=== PATIENT | female | born 1950 | race Caucasian/White ===

== ENCOUNTER 2016-10-28 13:38 | Emergency (ER) | payer OTHER ==
[2016-10-28 13:44] VITALS: TEMP 98; BMI 28.3
--- NOTE | 2016-10-28 15:07 | PDOC ---
History of Present Illness - General History Source: Patient Exam Limitations: No Limitations - History of Present Illness Initial Comments: 10/28/16 15:19 The patient is a 66-year-old woman, accompanied by friend, with a significant past medical history of HIV, hypertension, hyperhcolesterolemia, diabetes mellitus, asthma and chronic back pain who presents to the emergency department for further evaluation of chest pain for the past 3 days. She describes her chest pain as a tightening sensation along the mid-sternum, that has been non- radiating and constant since onset (lasting several seconds) with a 10/10 in severity. She also notes that her chest pain is associated with back pain and neck pain. Her pain is exacerbated with movements and alleviated with 800mg of ibuprofen. She recalls an event, approximately 2 weeks ago, where she was holding her [employer] and immediately felt back pain. She believes that her chest pain is secondary to this event. She denies fever, chills, cough, hemoptysis, diaphoresis, shortness of breath, headache. She denies jaw pain, lower extremity pain/swelling, calf tenderness/pain Allergies: None Known Past Surgical History: None reported Social History: No tobacco, ETOH and recreational drug use. <Sabra Luo - Last Filed: 10/28/16 15:41> <Noah Pineda - Last Filed: 10/28/16 17:16> - General Chief Complaint: Chest Pain Stated Complaint: CHEST PAIN Time Seen by Provider: 10/28/16 14:47 Past History <Sabra Luo - Last Filed: 10/28/16 15:41> - Past Medical History Asthma: Yes Diabetes: Yes HTN: Yes Hypercholesterolemia: Yes HIV: Yes - Immunization History Immunization Up to Date: Yes - Psycho/Social/Smoking Cessation Hx Anxiety: No Suicidal Ideation: No Smoking History: Never smoked Hx Alcohol Use: No Drug/Substance Use Hx: No Substance Use Type: None <Noah Pineda - Last Filed: 10/28/16 17:16> - Past Medical History Allergies/Adverse Reactions: Allergies Allergy/AdvReac Type Severity Reaction Status Date / Time No Known Allergies Allergy Verified 10/28/16 13:44 Home Medications: Ambulatory Orders Lisinopril/Hydrochlorothiazide [Lisinopril-Hctz 20-12.5 mg Tab] 1 each PO DAILY 10/28/16 Metformin HCl 850 mg PO DAILY 10/28/16 Review of Systems - Review of Systems Constitutional: No: Chills, Fever Respiratory: No: Cough, Shortness of Breath Cardiac (ROS): Yes: Chest Pain ABD/GI: Yes: Constipated. No: Diarrhea, Vomiting Musculoskeletal: Yes: Back Pain, Muscle Pain All Other Systems: Reviewed and Negative <Noah Pineda - Last Filed: 10/28/16 17:16> *Physical Exam - Vital Signs Last Vital Signs Temp Pulse Resp BP Pulse Ox 98.0 F 86 20 158/85 98 10/28/16 13:40 10/28/16 13:40 10/28/16 13:40 10/28/16 13:40 10/28/16 13:40 - Physical Exam Comments: 10/28/16 15:19 GENERAL: The patient is awake, alert, and fully oriented, in no acute distress. HEAD: Normal with no signs of trauma. EYES: Pupils equal, round and reactive to light, extraocular movements intact, sclera anicteric, conjunctiva clear with no pallor. ENT: Ears normal, nares patent, oropharynx clear without exudates. Moist mucous membranes. NECK: Normal range of motion, supple without lymphadenopathy, JVD, or masses. LUNGS: Breath sounds equal, clear to auscultation bilaterally. No wheeze/ crackles. HEART: Regular rate and rhythm, normal S1 and S2 without murmur or rub. CHEST: There is some reproducible mid sternal chest pain. BACK: There is some thoracic spine tenderness to palpation. ABDOMEN: Soft/nontender/nondistended. BS wnl. No guarding or rebound. No palpable masses. No hepatosplenomegaly. EXTREMITIES: Normal range of motion, no edema. No clubbing or cyanosis. No cords, erythema, or tenderness. NEUROLOGICAL: Cranial nerves II through XII grossly intact. Normal speech. PSYCH: Normal mood, normal affect. SKIN: Warm, Dry, normal turgor, no rashes or lesions noted. <Sabra Luo - Last Filed: 10/28/16 15:41> - Vital Signs Last Vital Signs Temp Pulse Resp BP Pulse Ox 98.0 F 86 20 158/85 98 10/28/16 13:40 10/28/16 13:40 10/28/16 13:40 10/28/16 13:40 10/28/16 13:40 <Noah Pineda - Last Filed: 10/28/16 17:16> Heart Score/ECG Review - History History: Slightly suspicious - Electrocardiogram EKG: Normal - Age Age: >/= 65 - Risk Factors Based on the list above the patient has:: 1-2 risk factors - Troponin Troponin: </= normal limit - Score Heart Score - Total: 3 #1 ECG reviewed & interpreted by me at: 13:48 General ECG Interpretation: Sinus Rhythm (single APC noted), Normal Rate (74), Normal Intervals (LVH), No acute ischemic changes <Noah Pineda - Last Filed: 10/28/16 17:16> ED Treatment Course - LABORATORY CBC & Chemistry Diagram: 10/28/16 16:20 10/28/16 16:20 <Noah Pineda - Last Filed: 10/28/16 17:16> Medical Decision Making - Medical Decision Making 10/28/16 15:54 A portion of this note was documented by scribe services under my direction. I have reviewed the details of the note, within reason, and agree with the documentation with the following case summary and management plan written by me. 66-year-old female presents with 4 days of mid back pain radiating to the chest , intermittent and recurring lasting a few minutes at a time, not positional or exertional, not associated with palpitations or shortness of breath. Patient feels her symptoms again while she was putting a heavy box on a shelf about 7- 10 days ago, she felt a twinge in her back that became much more severe a few days later. No direct falls or trauma. No sensory or motor complaints. She takes ibuprofen with temporary relief. Afebrile. Overall well-appearing Reproducible midthoracic and sternal tenderness without bruising or swelling Heart and lungs are clear 66-year-old female with back pain radiating to the chest, possible disc disease , neurovascularly and neurologically intact. Very atypical for ACS or dissection or primary pulmonary process. Check labs, EKG Chest x-ray and thoracic spine films Pain meds Reassess and dispo <Noah Pineda - Last Filed: 10/28/16 17:16> *DC/Admit/Observation/Transfer - Attestations Scribe Attestion: 10/28/16 15:41 Documentation prepared by Sabra Luo, acting as behavioral medical director for Noah Pineda MD. <Sabra Luo - Last Filed: 10/28/16 15:41> <Noah Pineda - Last Filed: 10/28/16 17:16> Diagnosis at time of Disposition: Thoracic back pain Qualifiers: Chronicity: acute Back pain laterality: midline Qualified Code(s): M54.6 - Pain in thoracic spine - Referrals Referrals: STAFF,NOT ON [Primary Care Provider] -
[2016-10-28] MEDS ORDERED: traMADol HCL 50 MG TABLET PO ONE (15:17)
[2016-10-28] MEDS ORDERED: traMADol HCL 50 MG TABLET ONE (16:22)
[2016-10-28 16:31] LABS: BASOPHIL 0.4 % (0-2.0); EOSINOPHIL 0.8 % (0-4.5); MCH 27.3 pg (25.7-33.7); MCHC 33.3 g/dl (32.0-36.0); MEAN PLT VOLUME 8.2 fl (7.5-11.1); NEUTROPHILS 65.9 % (42.8-82.8); PLATELET COUNT 293 K/MM3 (134-434); RDW 14.4 % (11.6-15.6); WHITE BLOOD COUNT 9.8 K/mm3 (4.0-10.0)
[2016-10-28 16:44] LABS: INR 1.09 (0.82-1.09)
[2016-10-28 17:42] LABS: ALK PHOS 117 U/L (45-117); ANION GAP -3 (8-16); BILIRUBIN,TOTAL 0.2 mg/dL (0.2-1.0); CO2 30 mmol/L (21-32); CREATININE 0.7 mg/dL (0.55-1.02); GLUCOSE,RANDOM 171 mg/dL (74-106); MAGNESIUM 1.9 mg/dL (1.8-2.4); SGOT/AST 12 U/L (15-37); SGPT/ALT 25 U/L (12-78); TOT PROT 7.7 g/dl (6.4-8.2); TROPONIN I < 0.02 ng/ml (0.00-0.05)
[2016-10-28] MEDS ORDERED: KETOROLAC TROMETHAMINE 30 MG/1 ML VIAL IVPUSH ONE (18:18)
[2016-10-28] MEDS ORDERED: KETOROLAC TROMETHAMINE 30 MG/1 ML VIAL ONE (18:27)
--- NOTE | 2016-10-28 18:59 | PDOC ---
*Physical Exam - Vital Signs Last Vital Signs Temp Pulse Resp BP Pulse Ox 98.0 F 87 20 158/85 98 10/28/16 13:40 10/28/16 16:34 10/28/16 13:40 10/28/16 13:40 10/28/16 16:34 ED Treatment Course - LABORATORY CBC & Chemistry Diagram: 10/28/16 16:20 10/28/16 16:20 - ADDITIONAL ORDERS Additional order review: Laboratory Results 10/28/16 10/28/16 16:20 16:20 INR 1.09 Sodium 131 L Potassium 4.1 Chloride 104 Carbon Dioxide 30 Anion Gap -3 L BUN 17 Creatinine 0.7 Creat Clearance w eGFR > 60 Random Glucose 171 H D Calcium 10.0 Magnesium 1.9 Total Bilirubin 0.2 AST 12 L ALT 25 Alkaline Phosphatase 117 D Creatine Kinase 95 Troponin I < 0.02 Total Protein 7.7 Albumin 4.0 10/28/16 16:20 RBC 4.80 MCV 82.0 MCHC 33.3 RDW 14.4 MPV 8.2 Neutrophils % 65.9 Lymphocytes % 27.2 Monocytes % 5.7 Eosinophils % 0.8 Basophils % 0.4 - Medications Given in the ED: ED Medications Discontinued Medications Generic Name Dose Route Start Last Admin Trade Name Freq PRN Reason Stop Dose Admin Ketorolac Tromethamine 30 mg 10/28/16 18:18 10/28/16 18:30 Toradol Injection - IVPUSH 10/28/16 18:19 30 mg ONCE ONE Administration Tramadol HCl 50 mg 10/28/16 15:17 10/28/16 16:26 Ultram - PO 10/28/16 15:18 50 mg ONCE ONE Administration Medical Decision Making - Medical Decision Making 10/28/16 18:54 Sign-out received from outgoing Emergency Physician Dr. Pineda Pt interviewed and examined Ancillary studies reviewed Case discussed in detail with oncoming Emergency Physician including history, physical exam and ancillary studies. The patient reports feeling better after tylenol and toradol. CBC, BMP 10/28/16 16:20 10/28/16 16:20 CMP Sodium 131 mmol/L (136-145) L 10/28/16 16:20 Potassium 4.1 mmol/L (3.5-5.1) 10/28/16 16:20 Chloride 104 mmol/L (98-107) 10/28/16 16:20 Carbon Dioxide 30 mmol/L (21-32) 10/28/16 16:20 Anion Gap -3 (8-16) L 10/28/16 16:20 BUN 17 mg/dL (7-18) 10/28/16 16:20 Creatinine 0.7 mg/dL (0.55-1.02) 10/28/16 16:20 Creat Clearance w eGFR > 60 (>60) 10/28/16 16:20 Random Glucose 171 mg/dL (74-106) H D 10/28/16 16:20 Calcium 10.0 mg/dL (8.5-10.1) 10/28/16 16:20 Magnesium 1.9 mg/dL (1.8-2.4) 10/28/16 16:20 Total Bilirubin 0.2 mg/dL (0.2-1.0) 10/28/16 16:20 AST 12 U/L (15-37) L 10/28/16 16:20 ALT 25 U/L (12-78) 10/28/16 16:20 Alkaline Phosphatase 117 U/L (45-117) D 10/28/16 16:20 Creatine Kinase 95 IU/L (26-192) 10/28/16 16:20 Troponin I < 0.02 ng/ml (0.00-0.05) 10/28/16 16:20 Total Protein 7.7 g/dl (6.4-8.2) 10/28/16 16:20 Albumin 4.0 g/dl (3.4-5.0) 10/28/16 16:20 Trop negative. Chest xray reviewed. No acute findings. No widened mediastinum. Thoracic spine shows spondylosis, which is likely the source of patient's back pain. Supportive care. Patient requesting a PMD here at [facility]. Return precautions given. I discussed the physical exam findings, ancillary test results and final diagnoses with the patient. I answered all of the patient's questions. The patient was satisfied with the care received and felt comfortable with the discharge plan and treatment plan. The patient will call their primary care physician within 24 hours to arrange follow-up and will return to the Emergency Department with any new, persistant or worsening symptoms. *DC/Admit/Observation/Transfer Diagnosis at time of Disposition: Thoracic back pain Qualifiers: Chronicity: acute Back pain laterality: midline Qualified Code(s): M54.6 - Pain in thoracic spine - Discharge Dispostion Disposition: HOME Condition at time of disposition: Improved Admit: No - Prescriptions Prescriptions: Blood Sugar Diagnostic [Test Strips] 1 each MC DAILY #30 strip Acetaminophen [Tylenol] 650 mg PO Q4H PRN #20 tablet PRN Reason: Pain/Fever - Referrals Referrals: STAFF,NOT ON [Primary Care Provider] - - Patient Instructions Printed Discharge Instructions: DI for Thoracic Back Pain Additional Instructions: Use 650 mg tylenol every 4 hours as needed for pain. Please take the results of your xrays and blood work and bring it to your doctor. Call to schedule an appointment. - Post Discharge Activity
[2016-10-28 19:40] VITALS: BP 148/76; PULSE 72
--- NOTE | 2016-10-29 16:57 | EKG ---
Test Reason : Blood Pressure : / mmHG Vent. Rate : 074 BPM Atrial Rate : 074 BPM P-R Int : 174 ms QRS Dur : 086 ms QT Int : 376 ms P-R-T Axes : 037 -14 -33 degrees QTc Int : 417 ms SINUS RHYTHM WITH OCCASIONAL PREMATURE VENTRICULAR COMPLEXES MINIMAL VOLTAGE CRITERIA FOR LVH, MAY BE NORMAL VARIANT CANNOT RULE OUT ANTERIOR INFARCT , AGE UNDETERMINED ABNORMAL ECG WHEN COMPARED WITH ECG OF 20-DEC-2015 19:08, PREMATURE VENTRICULAR COMPLEXES ARE NOW PRESENT Confirmed by KATHE LARKIN MD ([id number]) on 10/29/2016 4:56:52 PM Referred By: Confirmed By:KATHE LARKIN MD
--- NOTE | 2016-11-02 16:24 | EKG ---
Test Reason : Blood Pressure : / mmHG Vent. Rate : 073 BPM Atrial Rate : 073 BPM P-R Int : 186 ms QRS Dur : 086 ms QT Int : 372 ms P-R-T Axes : 047 -14 -09 degrees QTc Int : 409 ms NORMAL SINUS RHYTHM MINIMAL VOLTAGE CRITERIA FOR LVH, MAY BE NORMAL VARIANT NONSPECIFIC T WAVE ABNORMALITY ABNORMAL ECG WHEN COMPARED WITH ECG OF 28-OCT-2016 13:48, PREMATURE VENTRICULAR COMPLEXES ARE NO LONGER PRESENT Confirmed by THALIA PRESTON, KAROLINE ([id number]) on 11/02/2016 4:24:38 PM Referred By: Confirmed By:KAROLINE VÁSQUEZ MD
== END 2016-10-28 19:40 | disposition home or self-care (01) ==
LOC: JER 13:38
PROC: 3E0333Z Introduction of Anti-inflammatory into Peripheral Vein, Percutaneous Approach (ICD-10-PCS; principal; 2016-10-28)
DX: M54.6 Pain in thoracic spine (principal); Z21 Asymptomatic human immunodeficiency virus [HIV] infection status; I10 Essential (primary) hypertension; E78.00 Pure hypercholesterolemia, unspecified; E11.9 Type 2 diabetes mellitus without complications; J45.909 Unspecified asthma, uncomplicated; G89.29 Other chronic pain
CPT/HCPCS: 36415; 71020-TC; 72070-TC; 80053; 82550; 83735; 84484; 85025; 85610; 93005; 93010; 96374; 99284-25

== ENCOUNTER 2017-03-17 17:10 | Emergency (ER) | payer OTHER ==
[2017-03-17 17:23] VITALS: BMI 31.1
--- NOTE | 2017-03-17 18:03 | PDOC ---
History of Present Illness - General History Source: Patient Exam Limitations: No Limitations - History of Present Illness Initial Comments: 03/17/17 18:55 The patient is a 66 year old female, with a significant past medical history of Hypertension, hyperhcolesterolemia, diabetes mellitus, asthma and chronic back pain, who presents to the emergency department with abdominal pain, nausea, back pain, sore throat and fever since last night. She reports that her fever is subjective in favor. She describes her abdominal pain as ranging from mild to moderate, without radiation or modifying factors. She notes that her abdominal pain was onset earlier today when she fell. She denies any head trauma or loss of consciousness. She describes her back pain as localized in the mid to low back, ranging from mild to moderate, without radiation. She notes that the pain is exacerbated when the area is palpated. She notes that she took aspirin last night, with minimal relief of her symptoms. The patient denies chest pain, shortness of breath, headache and dizziness. Denies chills, vomit, diarrhea and constipation. Denies dysuria, frequency, urgency and hematuria. Allergies: None Known Past Surgical History: None reported Social History: No tobacco, ETOH and recreational drug use. <Domenic Issa - Last Filed: 03/17/17 19:52> <Emile Osorio - Last Filed: 03/17/17 20:06> - General Chief Complaint: Pain Stated Complaint: PAIN Time Seen by Provider: 03/17/17 17:54 Past History <Domenic Issa - Last Filed: 03/17/17 19:52> - Past Medical History Asthma: Yes Diabetes: Yes HTN: Yes Hypercholesterolemia: Yes HIV: No - Immunization History Immunization Up to Date: Yes - Psycho/Social/Smoking Cessation Hx Anxiety: No Suicidal Ideation: No Smoking History: Never smoked Hx Alcohol Use: No Drug/Substance Use Hx: No Substance Use Type: None <Emile Osorio - Last Filed: 03/17/17 20:06> - Past Medical History Allergies/Adverse Reactions: Allergies Allergy/AdvReac Type Severity Reaction Status Date / Time No Known Allergies Allergy Verified 03/17/17 17:23 Home Medications: Ambulatory Orders Acetaminophen [Tylenol] 650 mg PO Q4H PRN #20 tablet 10/28/16 Blood Sugar Diagnostic [Test Strips] 1 each MC DAILY #30 strip 10/28/16 Lisinopril/Hydrochlorothiazide [Lisinopril-Hctz 20-12.5 mg Tab] 1 each PO DAILY 10/28/16 Metformin HCl 850 mg PO DAILY 10/28/16 Amoxicillin - [Amoxicillin 500mg Capsule -] 500 mg PO BID #20 capsule 03/17/17 Review of Systems - Review of Systems Able to Perform ROS?: Yes Comments:: 03/17/17 18:55 CONSTITUTIONAL: (+) Fever. No chills, no fatigue EYES: No visual changes ENT: (+) Sore throat. No ear pain CARDIOVASCULAR: No chest pain, no palpitations RESPIRATORY: No cough, no SOB GI: (+) Abdominal pain, nausea, No vomiting, no constipation, no diarrhea GENITOURINARY: No dysuria, no frequency, no hematuria MUSKULOSKELETAL: (+) Back pain. No joint pain, no myalgias SKIN: No rash NEURO: No headache <Domenic Issa - Last Filed: 03/17/17 19:52> *Physical Exam - Vital Signs Last Vital Signs Temp Pulse Resp BP Pulse Ox 98.7 F 103 H 20 164/80 98 03/17/17 17:20 03/17/17 17:20 03/17/17 17:20 03/17/17 17:20 03/17/17 17:20 <Domenic Issa - Last Filed: 03/17/17 19:52> - Vital Signs Last Vital Signs Temp Pulse Resp BP Pulse Ox 98.7 F 103 H 20 164/80 98 03/17/17 17:20 03/17/17 17:20 03/17/17 17:20 03/17/17 17:20 03/17/17 17:20 - Physical Exam Comments: 03/17/17 19:59 CONSTITUTIONAL: Awake and alert; well-nourished; in no apparent distress HEAD: Normocephalic; atraumatic EYES: PERRL; EOM intact; no photophobia ENMT: External appears normal; + oropharynx is erythematous, uvula is not edematous and is midline; there is minimal amount of tonsillar exudate bilaterally NECK: Supple; non-tender;+ bilateral anterior cervical lymphadenopathy CARD: Normal S1, S2; no murmurs, rubs, or gallops RESP: Normal chest excursion with respiration; breath sounds clear and equal bilaterally; no wheezes, rhonchi, or rales ABD: Soft, non-distended; non-tender; no palpable organomegaly, no palpable hernias BACLK: No obvious deformity; mild tenderness at L4, L5 and S1 EXT: Normal ROM in all four extremities; straight leg raise is negative; non- tender to palpation; distal pulses intact; patient is able to ambulate without difficulty; SKIN: Warm, dry, no rash NEURO: Cranial nerves II through XII are grossly intact; motor is 5 of 54; no pronation drift; <Emile Osorio - Last Filed: 03/17/17 20:06> ED Treatment Course - LABORATORY CBC & Chemistry Diagram: 03/17/17 18:50 03/17/17 18:50 - ADDITIONAL ORDERS Additional order review: Laboratory Results 03/17/17 18:45 Urine Color Yellow Urine Appearance Clear Urine pH 5.0 Urine Protein 1+ H Urine Glucose (UA) 2+ H Urine Ketones 1+ H Urine Blood 1+ H Urine Nitrite Negative Urine Bilirubin Negative Urine Urobilinogen 2.0 e.u/dl H Ur Leukocyte Esterase Negative <Domenic Issa - Last Filed: 03/17/17 19:52> - LABORATORY CBC & Chemistry Diagram: 03/17/17 18:50 03/17/17 18:50 <Emile Osorio - Last Filed: 03/17/17 20:06> Medical Decision Making - Medical Decision Making 03/17/17 20:02 Patient is 66-year-old female who presents with signs and symptoms of acute streptococcal pharyngitis. In the ER, patient is awake and alert, with oropharyngeal erythema and minimal tonsillar exudate. There is no evidence of peritonsillar abscess or airway compromise at this time. Serial abdominal exams reveal no focal tenderness; evaluation of the LS spine reveals mild midline tenderness which patient reports is chronic in nature and has been going on for the past several months after a mechanical fall. Patient reports Mechanical fall that occurred immediately prior to arrival when she fell onto the left side of her abdomen. I do not suspect acute intra-abdominal pathology at this time. Will discharge with amoxicillin with PMD follow-up. <Emile Osorio - Last Filed: 03/17/17 20:06> *DC/Admit/Observation/Transfer - Attestations Scribe Attestion: 03/17/17 18:55 Documentation prepared by Domenic Issa, acting as director global medical affairs for Emile Osorio MD <Domenic Issa - Last Filed: 03/17/17 19:52> - Attestations Physician Attestion: 03/17/17 19:59 The documentation was prepared by the scribe under my direct supervision. I have reviewed the documentation which correctly represents the findings, medical decision-making and critical action taken by me. <Emile Osorio - Last Filed: 03/17/17 20:06> Diagnosis at time of Disposition: Pharyngitis Qualifiers: Pharyngitis/tonsillitis etiology: streptococcus Qualified Code(s): J02.0 - Streptococcal pharyngitis Low back pain Qualifiers: Chronicity: unspecified Back pain laterality: midline Sciatica presence: without sciatica Qualified Code(s): M54.5 - Low back pain - Discharge Dispostion Disposition: HOME Condition at time of disposition: Stable - Referrals Referrals: STAFF,NOT ON [Primary Care Provider] - Uziel Hendrix MD [Staff Physician] - - Patient Instructions Printed Discharge Instructions: DI for Strep Throat, DI for Low Back Pain Print Language: [place]
[2017-03-17] MEDS ORDERED: ACETAMINOPHEN 500 MG TABLET (FP) PO ONE (18:33)
[2017-03-17] MEDS ORDERED: SODIUM CHLORIDE 1,000 ML IV STA (18:34)
[2017-03-17 18:45] LABS: URINE APPEARANCE CLEAR; URINE BILIRUBIN NEGATIVE (NEGATIVE); URINE COLOR YELLOW; URINE GLUCOSE (UA) 2+ (NEGATIVE); URINE KETONE 1+ (NEGATIVE); URINE LEUK ESTERASE NEGATIVE (NEGATIVE); URINE NITRITE NEGATIVE (NEGATIVE); URINE UROBILINOGEN 2.0 E.U/dl E.U./dl (0.2-1.0)
[2017-03-17 18:52] LABS: URINE BLOOD 1+ (NEGATIVE); URINE PROTEIN 1+ (NEGATIVE)
[2017-03-17 18:55] LABS: URINE MUCUS RARE; URINE RBC 5 /hpf (0-3); URINE WBC 2 /hpf (3-5)
[2017-03-17 18:57] LABS: BASOPHIL 0.3 % (0-2.0); MCH 26.4 pg (25.7-33.7); MCHC 32.4 g/dl (32.0-36.0); MEAN CELL VOLUME 81.3 fl (80-96); MEAN PLT VOLUME 8.3 fl (7.5-11.1); NEUTROPHILS 83.9 % (42.8-82.8); PLATELET COUNT 257 K/MM3 (134-434); RDW 14.4 % (11.6-15.6); WHITE BLOOD COUNT 18.5 K/mm3 (4.0-10.0)
[2017-03-17] MEDS ORDERED: ACETAMINOPHEN 325 MG TABLET (FP) ONE (18:58)
[2017-03-17] MEDS ORDERED: AMOXICILLIN 500 MG CAPSULE (FP) ONE (20:22)
[2017-03-17 20:45] VITALS: BP 145/64; PULSE 78; TEMP 98.5
== END 2017-03-17 20:20 | disposition home or self-care (01) ==
LOC: JER 17:10
PROC: 3E0337Z Introduction of Electrolytic and Water Balance Substance into Peripheral Vein, Percutaneous Approach (ICD-10-PCS; principal; 2017-03-17)
DX: J02.0 Streptococcal pharyngitis (principal); B95.0 Streptococcus, group A, as the cause of diseases classified elsewhere; M54.5 Low back pain
CPT/HCPCS: 36415; 81003; 81015; 85025; 87070; 87077; 87086; 87430; 87804; 99283-25

== ENCOUNTER 2018-02-03 00:20 | Observation (INO) | payer OTHER ==
--- NOTE | 2018-02-03 00:33 | PDOC ---
History of Present Illness - General Chief Complaint: Pain, Acute Stated Complaint: ABD PAIN Time Seen by Provider: 02/03/18 00:25 - History of Present Illness Initial Comments: 02/03/18 01:26 The patient is a 67 year old female with a history of HTN, HLD, DM, Constipation who presents for evaluation of abdominal pain. The patient is accompanied by family who assist in providing the history. They report that that patient has a long history of constipation stating that on average, the patient does not have bowel movements for 2 weeks and then has high dose laxitives with a bowel movement. They state that the patient has been worked up in the past with negative work ups by GI. They note that the patient began experiencing severe crampy abdominal pain today after taking laxitives. They note that the patient has not had a bowel movement in 2 weeks. The patient endorses nausea, but otherwise denies fevers, chills, SOB, chest pain, vomiting , or changes with urination. Past History - Past Medical History Allergies/Adverse Reactions: Allergies Allergy/AdvReac Type Severity Reaction Status Date / Time No Known Allergies Allergy Verified 02/03/18 00:27 Home Medications: Ambulatory Orders Aspirin [ASA -] 81 mg PO DAILY 02/03/18 Chlorthalidone 25 mg PO DAILY 02/03/18 Docusate Sodium [Colace] 100 mg PO BID #60 capsule 02/03/18 Gabapentin [Neurontin] 300 mg PO TID 02/03/18 Liraglutide [Victoza -] 1.8 mg SQ DAILY@0700 02/03/18 Lisinopril [Zestril] 30 mg PO DAILY 02/03/18 Polyethylene Glycol 3350 [Miralax (For Daily Use) -] 17 gm PO DAILY #1 bottle Pravastatin Sodium 20 mg PO DAILY 02/03/18 Sennosides [Senna] 8.6 mg PO HS #30 tablet 02/03/18 Sitagliptin Phosphate [Januvia] 100 mg PO DAILY 02/03/18 Asthma: Yes Diabetes: Yes HTN: Yes Hypercholesterolemia: Yes - Immunization History Immunization Up to Date: Yes - Suicide/Smoking/Psychosocial Hx Smoking History: Never smoked Have you smoked in the past 12 months: No Information on smoking cessation initiated: No Hx Alcohol Use: No Drug/Substance Use Hx: No Substance Use Type: None Review of Systems - Review of Systems Comments:: 02/03/18 01:30 Constitutional: No fevers, chills, fatigue, malaise HEENT: No Rhinorrhea, nasal congestion, visual changes Cardiovascular: No chest pain, syncope, palpitations, lightheadedness Respiratory: No Cough, SOB, Hemoptysis, Gastrointestinal: Abdominal pain, nausea, constipation. No Vomiting, Diarrhea, Melena Genitourinary: No Dysuria, Frequency, Urgency, Hesitancy, Hematuria, Flank pain Musculoskeletal: No Myalgia, arthralgia Skin: No rashes, itching, bruising, pallor Neurologic: No Headache, Dizziness, Numbness, Weakness, or Tingling Psychiatric: No Hallucinations. No SI or HI *Physical Exam - Vital Signs Last Vital Signs Temp Pulse Resp BP Pulse Ox 97.7 F 79 20 118/75 97 02/03/18 00:27 02/03/18 00:27 02/03/18 00:27 02/03/18 00:27 02/03/18 00:27 - Physical Exam Comments: 02/03/18 01:30 General Appearance: Nourished. In Moderate Apparent Distress HEENT: EOMI, GLENROY. No Pharyngeal Erythema, Tonsillar Exudate, Tonsillar Erythema Neck: No Cervical Lymphadenopathy Respiratory/Chest: Lungs Clear, Normal Breath Sounds. No Crackles, Rales, Rhonchi, Wheezing Cardiovascular: Regular Rhythm, Regular Rate. No Murmur, Gallops, Rubs Gastrointestinal/Abdominal: Hyperactive Bowel Sounds, Distended abdomen with Diffuse tenderness to palpation and guarding. No Rebound, Musculoskeletal: No CVA Tenderness Extremity: Normal Capillary Refill Integumentary: Normal Color, Dry, Warm Neurologic: Fully Oriented, Alert, Normal Mood/Affect, Normal Response, Heart Score/ECG Review #1 ECG reviewed & interpreted by me at: 01:18 (Sinus Tachycardia to 111. 1st degree AV Block) General ECG Interpretation: Sinus Rhythm, Normal Intervals, No acute ischemic changes ED Treatment Course - LABORATORY CBC & Chemistry Diagram: 02/03/18 01:01 02/03/18 01:01 Medical Decision Making - Medical Decision Making 02/03/18 01:31 The patient is a 67 year old female with a history of HTN, HLD, DM, Constipation who presents for evaluation of abdominal pain. Differential includes but is not limited to: ACS, Constipation, Obstruction, Perforation, Pancreatitis, Infectious, Metabolic derangement. Given the patient's history and physical exam, it is possible her current pain is due to obstruction vs. perforation vs. constipation. We will obtain a cbc, cmp, troponin, lipase, ekg , and abdomen/pelvis Ct to evaluate further for possible etiologies. We will treat with morphine, iv fluids, zofran in the meantime. We will continue to monitor and reassess. 02/03/18 06:55 CBC, cmp, troponin, lipase are unremarkable. Plain film of the abdomen demonstrates some concerns for ileus vs. obstruction. However the patient reports significant improvement in her symptoms after a large bowel movement here in the ER. The patient will require CT scan though to evaluate for more serious pathology. CT scan is currently down and the patient has been ED obs for further imaging. Patient signed out to Dr. Mckeon pending CT abdomen/pelvis. *DC/Admit/Observation/Transfer Diagnosis at time of Disposition: Constipation Abdominal pain Qualifiers: Abdominal location: unspecified location Qualified Code(s): R10.9 - Unspecified abdominal pain - Discharge Dispostion Disposition: HOME Condition at time of disposition: Stable Admit: Yes - Prescriptions - Referrals - Patient Instructions - Post Discharge Activity
[2018-02-03 00:40] VITALS: BMI 24.7
[2018-02-03] MEDS ORDERED: ONDANSETRON 4 MG/2 ML VIAL IVPUSH ONE (00:47)
[2018-02-03] MEDS ORDERED: SODIUM CHLORIDE 1,000 ML IV STA (00:47)
[2018-02-03] MEDS ORDERED: morphine CARPU-JECT 4 MG/1 ML DISP.SYRIN IVPUSH ONE (00:52)
[2018-02-03] MEDS ORDERED: morphine SULFATE 4 MG/ML VIAL ONE (01:07)
[2018-02-03] MEDS ORDERED: ONDANSETRON 4 MG/2 ML VIAL ONE (01:07)
[2018-02-03 01:32] LABS: BASO % 0.5 % (0-2.0); EOS % 1.4 % (0-4.5); HEMATOCRIT 34.4 % (32.4-45.2); LYMPH % 25.2 % (8-40); MCH 28.9 pg (25.7-33.7); MCHC 34.8 g/dl (32.0-36.0); MEAN CELL VOLUME 83.1 fl (80-96); MEAN PLT VOLUME 7.8 fl (7.5-11.1); MONO % 8.2 % (3.8-10.2); NEUT % 64.7 % (42.8-82.8); PLATELET COUNT 297 K/MM3 (134-434); RBC 4.14 M/mm3 (3.60-5.2); RDW 13.7 % (11.6-15.6); WHITE BLOOD COUNT 9.6 K/mm3 (4.0-10.0)
[2018-02-03 02:00] LABS: ALBUMIN 3.9 g/dl (3.4-5.0); ANION GAP 10 (8-16); BILIRUBIN,TOTAL 0.2 mg/dL (0.2-1.0); BLOOD UREA NITROGEN 18 mg/dL (7-18); CALCIUM 10.1 mg/dL (8.5-10.1); CHLORIDE 103 mmol/L (98-107); CO2 25 mmol/L (21-32); CREATININE 0.9 mg/dL (0.55-1.02); GLUCOSE,RANDOM 158 mg/dL (74-106); LIPASE 158 U/L (73-393); POTASSIUM 3.8 mmol/L (3.5-5.1); SGOT/AST 17 U/L (15-37); SGPT/ALT 20 U/L (12-78); SODIUM 138 mmol/L (136-145); TOT PROT 7.6 g/dl (6.4-8.2)
[2018-02-03 02:03] LABS: ALK PHOS 83 U/L (45-117)
--- NOTE | 2018-02-03 08:02 | PDOC ---
*Physical Exam - Vital Signs Last Vital Signs Temp Pulse Resp BP Pulse Ox 97.7 F 79 18 109/58 99 02/03/18 06:35 02/03/18 06:35 02/03/18 06:35 02/03/18 06:35 02/03/18 06:35 ED Treatment Course - LABORATORY CBC & Chemistry Diagram: 02/03/18 01:01 02/03/18 01:01 - ADDITIONAL ORDERS Additional order review: Laboratory Results 02/03/18 01:01 Sodium 138 Potassium 3.8 Chloride 103 Carbon Dioxide 25 Anion Gap 10 BUN 18 Creatinine 0.9 Creat Clearance w eGFR > 60 Random Glucose 158 H Calcium 10.1 Total Bilirubin 0.2 AST 17 ALT 20 Alkaline Phosphatase 83 Creatine Kinase 85 Troponin I < 0.02 Total Protein 7.6 Albumin 3.9 Lipase 158 02/03/18 01:01 RBC 4.14 MCV 83.1 MCHC 34.8 RDW 13.7 MPV 7.8 Neutrophils % 64.7 D Lymphocytes % 25.2 D Monocytes % 8.2 Eosinophils % 1.4 D Basophils % 0.5 - Medications Given in the ED: ED Medications Discontinued Medications Generic Name Dose Route Start Last Admin Trade Name Freq PRN Reason Stop Dose Admin Sodium Chloride 1,000 mls @ 1,000 mls/hr 02/03/18 00:47 02/03/18 01:26 Normal Saline - IV 02/03/18 01:46 1,000 mls/hr ASDIR STA Administration Morphine Sulfate 4 mg 02/03/18 00:52 02/03/18 01:26 Morphine Injection - IVPUSH 02/03/18 00:53 4 mg ONCE ONE Administration Ondansetron HCl 4 mg 02/03/18 00:47 02/03/18 01:26 Zofran Injection IVPUSH 02/03/18 00:48 4 mg ONCE ONE Administration Medical Decision Making - Medical Decision Making 02/03/18 07:54 Patient signed out to me by Dr Zepeda. Patient has had marked improved abdominal pain since bowel movement in the ER. Currently resting comfortably, in no apparent distress. Pending CT abdomen/pelvis to R/O SBO or other intra-abdominal pathology 02/03/18 08:23 CT abdomen and pelvis shows no evidence of bowel perforation, obstruction or acute pathology. 02/03/18 08:49 Pt is ED Obs with hospitalist group 02/03/18 08:55 *DC/Admit/Observation/Transfer Diagnosis at time of Disposition: Abdominal pain Qualifiers: Abdominal location: unspecified location Qualified Code(s): R10.9 - Unspecified abdominal pain Constipation Qualifiers: Constipation type: unspecified constipation type Qualified Code(s): K59.00 - Constipation, unspecified - Discharge Dispostion Disposition: HOME Condition at time of disposition: Stable Admit: No - Referrals - Patient Instructions - Post Discharge Activity - Attestations Physician Attestion: 02/03/18 08:50 Myranda Mckeon MD
--- NOTE | 2018-02-03 09:14 | HP ---
CHIEF COMPLAINT: " Abdominal pain, abdominal distention, constipation" PCP: @ [facility] HISTORY OF PRESENT ILLNESS: Patient is a 67 year old female presented to the ED, accompanied with her son, with the chief complaint of "Abdominal pain, abdominal distention, constipation ". As per the patient, she has a h/o chronic constipation, didn't have bowel movements since 2 weeks. She took multiple over the counter stool softners but without relief. Last night, she took a liquid stool softener and since then started having severe abdominal pain and distention, causing her to have palpitation and shortness of breath. It was associated with nausea but no vomiting. She then called her son and was brought the ED for further evaluation and treatment. Denies chest pain, cough, fever, chills, rigors, sweating, headache, loc, trauma. Last colonoscopy was 2 yrs ago and it was normal as per the pt. Bladder habit normal. Sleep/Appetite normal prior to illness. In Sep, 2017, she had a mechanical fall, had a fracture of right lower ext, cast applied, follows up with ortho. In the ED, patient moved her bowel about 5 times, no blood. Now feels better and symptoms have resolved. ER course was notable for: (1) Afebrile, hemodynamically stable. 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 Family History: Non contributory Allergies No Known Allergies Allergy (Verified 02/03/18 00:27) HOME MEDICATIONS: Home Medications Medication Instructions Recorded Acetaminophen [Tylenol] 650 mg PO Q4H PRN #20 tablet 10/28/16 Lisinopril/Hydrochlorothiazide 1 each PO DAILY 10/28/16 [Lisinopril-Hctz 20-12.5 mg Tab] Metformin HCl 850 mg PO DAILY 10/28/16 Amoxicillin - [Amoxicillin 500mg 500 mg PO BID #20 capsule 03/17/17 Capsule -] REVIEW OF SYSTEMS CONSTITUTIONAL: Absent: fever, chills, diaphoresis, generalized weakness, malaise, loss of appetite, weight change HEENT: Absent: rhinorrhea, nasal congestion, throat pain, throat swelling, difficulty swallowing, mouth swelling, ear pain, eye pain, visual changes CARDIOVASCULAR: Present: Palpitation Absent: chest pain, syncope, palpitations, irregular heart rate, lightheadedness , peripheral edema RESPIRATORY: Present: SOB Absent: cough, dyspnea with exertion, orthopnea, wheezing, stridor, hemoptysis GASTROINTESTINAL: Present: abdominal pain, abdominal distension, nausea Absent: vomiting, diarrhea, constipation, melena, hematochezia GENITOURINARY: Absent: dysuria, frequency, urgency, hesitancy, hematuria, flank pain, genital pain MUSCULOSKELETAL: Absent: myalgia, arthralgia, joint swelling, back pain, neck pain SKIN: Absent: rash, itching, pallor HEMATOLOGIC/IMMUNOLOGIC: Absent: easy bleeding, easy bruising, lymphadenopathy, frequent infections ENDOCRINE: Absent: unexplained weight gain, unexplained weight loss, heat intolerance, cold intolerance NEUROLOGIC: Absent: headache, focal weakness or paresthesias, dizziness, unsteady gait, seizure, mental status changes, bladder or bowel incontinence PSYCHIATRIC: Absent: anxiety, depression, suicidal or homicidal ideation, hallucinations. PHYSICAL EXAMINATION Vital Signs - 24 hr 02/03/18 02/03/18 02/03/18 00:27 04:36 06:35 Temperature 97.7 F 98.6 F 97.7 F Pulse Rate 105 H Pulse Rate [ 101 H 79 Apical] Respiratory 18 22 18 Rate Blood Pressure 129/72 Blood Pressure 128/76 109/58 [Arm] O2 Sat by Pulse 99 99 99 Oximetry (%) GENERAL: Patient is comfortably lying in bed, Awake, alert, and fully oriented, in no acute distress. HEAD: Normal with no signs of trauma. EYES: EOM intact, no pallor or icterus. EARS, NOSE, THROAT: Ears normal. Moist mucous membranes. NECK: Supple. LUNGS: B/L Breath sounds equal, clear to auscultation bilaterally. No wheezes, and no crackles. No accessory muscle use. HEART: Regular rate and rhythm, normal S1 and S2 without murmur. ABDOMEN: Soft, nontender, not distended, normoactive bowel sounds, no guarding, no rebound, no masses. No hepatomegaly or splenomegaly. MUSCULOSKELETAL: Normal range of motion at all joints. No bony deformities or tenderness. No CVA tenderness. UPPER EXTREMITIES: 2+ pulses, warm, well-perfused. No cyanosis. No clubbing. No peripheral edema. LEFT LOWER EXTREMITIES: 2+ pulses, warm, well-perfused. No calf tenderness. No peripheral edema. RIGHT LOWER EXTREMITY: Cast applied in the right lower ext. NEUROLOGICAL: No facial droop, Normal speech. Normal gait. PSYCHIATRIC: Cooperative. Good eye contact. Appropriate mood and affect. SKIN: Warm, dry, normal turgor, no rashes or lesions noted, normal capillary refill. Laboratory Results - last 24 hr 02/03/18 02/03/18 01:01 01:01 WBC 9.6 D RBC 4.14 Hgb 12.0 Hct 34.4 MCV 83.1 MCH 28.9 MCHC 34.8 RDW 13.7 Plt Count 297 MPV 7.8 Neutrophils % 64.7 D Lymphocytes % 25.2 D Monocytes % 8.2 Eosinophils % 1.4 D Basophils % 0.5 Sodium 138 Potassium 3.8 Chloride 103 Carbon Dioxide 25 Anion Gap 10 BUN 18 Creatinine 0.9 Creat Clearance w eGFR > 60 Random Glucose 158 H Calcium 10.1 Total Bilirubin 0.2 AST 17 ALT 20 Alkaline Phosphatase 83 Creatine Kinase 85 Troponin I < 0.02 Total Protein 7.6 Albumin 3.9 Lipase 158 ASSESSMENT/PLAN: Patient is a 67 year old female presented to the ED, accompanied with her son, with the chief complaint of "Abdominal pain, abdominal distention, constipation ". # Chronic constipation c/o no bowel movement since 2 weeks, abdominal pain, distention, nausea, failed outpatient treatment In the ED, she was afebrile, tachycardic, hemodynamically stable. Moved her bowel 5 times in the ED without any treatment, patient had taken multiple OTC laxatives at home Admit in Med-Surg/obs CT abdomen/Pelvis: Showed no acute pathology Can be discharged home. # Hypertension -stable Continue Lisinopril/HCTZ # DM Finger stick glucose monitoring Hold Metformin for at least 48 hrs since she got contrast for CT abd/pelvis. # FEN Not on IV fluids, can tolerate PO Electrolytes WNL Diabetic diet # Prophylaxis For DVT: Early ambulation For GI: Not indicated # Code status: Full Code # Dispo: Admitted in Med-Surg, stable, can be discharged. Illness, Investigation and Plan of care explained to the patient. She verbalized understanding. Case seen and discussed with Dr. Crook. Visit type - Emergency Visit Emergency Visit: Yes ED Registration Date: 02/03/18 Care time: The patient presented to the Emergency Department on the above date and was hospitalized for further evaluation of their emergent condition. - New Patient This patient is new to me today: Yes Date on this admission: 02/03/18 - Critical Care Critical Care patient: No Hospitalist Screening - Colonoscopy Questionnaire Colonoscopy Questionnaire: Colonoscopy Questionnaire - Patient: 50 - 75 years old and never had a screening colonoscopy: Yes History of colon or rectal polyps, or CA: No History of IBD, Crohn's disease or UC: No History of abdominal radiation therapy as a child: No - Relative: 1 with colon or rectal CA, or polyps at age 60 or younger: No Colon or rectal CA diagnosed at age 45 or younger: No Multiple relatives with colon or rectal CA: No - Outcome: Screening Result: Positive Screen
[2018-02-03] MEDS ORDERED: LISINOPRIL 10 MG TABLET (FP) PO SCH (10:30)
[2018-02-03] MEDS ORDERED: sitaGLIPtin PHOSPHATE 100 MG TABLET (FP) PO SCH (10:30)
[2018-02-03] MEDS ORDERED: ASPIRIN 81 MG CHEWABLE TABLETS PO SCH (10:30)
[2018-02-03] MEDS ORDERED: sitaGLIPtin PHOSPHATE 50 MG TABLET ONE ×2 (11:13→11:16)
[2018-02-03] MEDS ORDERED: ASPIRIN 81 MG CHEWABLE TABLETS ONE (11:13)
[2018-02-03] MEDS ORDERED: LISINOPRIL 5 MG TABLET (FP) ONE (11:15)
[2018-02-03] MEDS ORDERED: LISINOPRIL 20 MG TABLET (FP) ONE (11:15)
--- NOTE | 2018-02-03 11:16 | DS ---
Physical Exam: SUBJECTIVE: Patient seen and examined at bed side this morning. Feels better. Abdominal pain and distention has resolved. Denies nausea, vomiting, chest pain , sob, cough, palpitation. Bladder habit normal. No acute events as per RN. OBJECTIVE: Vital Signs Period Temp Pulse Resp BP Sys/Conner Pulse Ox Last 24 Hr 97.7 F-98.6 F 79-105 18-22 109-129/58-76 99-99 PHYSICAL EXAM GENERAL: Patient is comfortably lying in bed, Awake, alert, and fully oriented, in no acute distress. HEAD: Normal with no signs of trauma. EYES: EOM intact, no pallor or icterus. EARS, NOSE, THROAT: Ears normal. Moist mucous membranes. NECK: Supple. LUNGS: B/L Breath sounds equal, clear to auscultation bilaterally. No wheezes, and no crackles. No accessory muscle use. HEART: Regular rate and rhythm, normal S1 and S2 without murmur. ABDOMEN: Soft, nontender, not distended, normoactive bowel sounds, no guarding, no rebound, no masses. No hepatomegaly or splenomegaly. MUSCULOSKELETAL: Normal range of motion at all joints. No bony deformities or tenderness. No CVA tenderness. UPPER EXTREMITIES: 2+ pulses, warm, well-perfused. No cyanosis. No clubbing. No peripheral edema. LEFT LOWER EXTREMITIES: 2+ pulses, warm, well-perfused. No calf tenderness. No peripheral edema. RIGHT LOWER EXTREMITY: Leg support applied in the right lower ext. NEUROLOGICAL: No facial droop, Normal speech. Normal gait. PSYCHIATRIC: Cooperative. Good eye contact. Appropriate mood and affect. SKIN: Warm, dry, normal turgor, no rashes or lesions noted, normal capillary refill. LABS Laboratory Results - last 24 hr 02/03/18 02/03/18 01:01 01:01 WBC 9.6 D RBC 4.14 Hgb 12.0 Hct 34.4 MCV 83.1 MCH 28.9 MCHC 34.8 RDW 13.7 Plt Count 297 MPV 7.8 Neutrophils % 64.7 D Lymphocytes % 25.2 D Monocytes % 8.2 Eosinophils % 1.4 D Basophils % 0.5 Sodium 138 Potassium 3.8 Chloride 103 Carbon Dioxide 25 Anion Gap 10 BUN 18 Creatinine 0.9 Creat Clearance w eGFR > 60 Random Glucose 158 H Calcium 10.1 Total Bilirubin 0.2 AST 17 ALT 20 Alkaline Phosphatase 83 Creatine Kinase 85 Troponin I < 0.02 Total Protein 7.6 Albumin 3.9 Lipase 158 Abdomen/Pelvis CT: Normal CT scan of the abdomen and pelvis with no evidence of bowel perforation, obstruction or acute pathology. HOSPITAL COURSE: Date of Admission:02/03/18 Date of Discharge: 02/03/18 Patient is a 67 year old female presented to the ED, accompanied with her son, with the chief complaint of "Abdominal pain, abdominal distention, constipation ". As per the patient, she has a h/o chronic constipation, didn't have bowel movements since 2 weeks. She took multiple over the counter stool softners but without relief. Last night, she took a liquid stool softener and since then started having severe abdominal pain and distention, causing her to have palpitation and shortness of breath. It was associated with nausea but no vomiting. She then called her son and was brought the ED for further evaluation and treatment. In the ED, patient moved her bowel about 5 times, no blood. Now feels better and symptoms have resolved. Last colonoscopy was 2 yrs ago and it was normal according to the patient. She was afebrile, tachycardic initially but later improved, hemodynamically stable, all labs were normal including CT abdomen/Pelvis. Now her symptoms have resolved completely. Hence, patient is stable for discharge. Patient has been instructed to avoid Metformin for at least 48 hrs since she got contrast with CT abd/pelvis. Minutes to complete discharge: 45 Discharge Summary Reason For Visit: ABDOMINAL PAIN CONSTIPATION (ED OBS SHOR) Current Active Problems Abdominal pain (Acute) Constipation (Acute) Condition: Stable - Instructions Diet, Activity, Other Instructions: You were evaluated in the hospital for severe abdominal pain and chronic constipation. Abdominal/Pelvis CT was done which showed no acute pathology. Most likely your abdominal pain was due to constipation. Please make sure to drink plenty of water, increase dietary fibres in your diet. BECAUSE YOUR GOT DYE FOR YOUR CT SCAN, PLEASE DO NOT TAKE YOUR METFORMIN FOR 48 HOURS AND MONITOR YOUR SUGARS. YOU ARE OK TO RESUME YOUR METFORMIN ON WEDNESDAY OR WEDNESDAY (02/06 OR 02/07) IF NO CONCERNS AND MONITOR YOUR BLOOD SUGARS IN THE MEAN TIME. We sent few medications for constipation 1. Please take Colace twice a day 2. Please take Senna at night 3. If you do not have bowel movements in two days, please take Miralax 4. Once you start having bowel movements, you can stop the above medications. 5. Continue all home medications. Within a week, please f/up with Dr. Heide Snow (physician at [facility] ) If your symptoms get worse, please come to the ED immediately. Referrals: Edy Jaeger MD [Staff Physician] - 1 Week Disposition: HOME - Home Medications Comprehensive Discharge Medication List: Ambulatory Orders Metformin HCl 850 mg PO BID 10/28/16 Aspirin [ASA -] 81 mg PO DAILY 02/03/18 Chlorthalidone 25 mg PO DAILY 02/03/18 Docusate Sodium [Colace] 100 mg PO BID #60 capsule 02/03/18 Gabapentin [Neurontin] 300 mg PO TID 02/03/18 Liraglutide [Victoza -] 1.8 mg SQ DAILY@0700 02/03/18 Lisinopril [Zestril] 30 mg PO DAILY 02/03/18 Polyethylene Glycol 3350 [Miralax (For Daily Use) -] 17 gm PO DAILY #1 bottle Pravastatin Sodium 20 mg PO DAILY 02/03/18 Sennosides [Senna] 8.6 mg PO HS #30 tablet 02/03/18 Sitagliptin Phosphate [Januvia] 100 mg PO DAILY 02/03/18 This patient is new to me today: Yes Date on this admission: 02/03/18 Emergency Visit: Yes ED Registration Date: 02/03/18 Care time: The patient presented to the Emergency Department on the above date and was hospitalized for further evaluation of their emergent condition. Critical Care patient: No - Discharge Referral Referred to [facility] No
[2018-02-03 12:00] VITALS: BP 112/52; PULSE 65; TEMP 97.2
--- NOTE | 2018-02-03 12:12 | PN ---
Teaching Attending Note Name of Resident: Fariba Willson ATTENDING PHYSICIAN STATEMENT I saw and evaluated the patient. I reviewed the resident's note and discussed the case with the resident. I agree with the resident's findings and plan as documented with exceptions below. SUBJECTIVE: 67 yof with DM, HTN, Constipation, Asthma, RLE fracture in 09/2017 s/p cast, comes with ongoing constipation that failed to resolve with outpatient laxatives and abdominal pain. While in ED, before any intervention, had multiple BMs with resolution of her symptoms. CT A/P non concerning Patient currently denies any nausea, vomiting, abdominal pain or concerns. Eager to home. 12 point ROS done, cast RLE but no pain, has been ambulating. Neg except above. OBJECTIVE: Vital Signs Period Temp Pulse Resp BP Sys/Conner Pulse Ox Last 24 Hr 97.2 F-98.6 F 65-105 16-22 109-129/52-76 96-99 Intake & Output 01/31/18 02/01/18 02/02/18 02/03/18 23:59 23:59 23:59 23:59 Weight 135 lb GENERAL: Awake, alert, and fully oriented, in no acute distress. HEAD: Normal with no signs of trauma. EYES: Pupils equal, round and reactive to light, extraocular movements intact, sclera anicteric, conjunctiva clear. No lid lag. EARS, NOSE, THROAT: Ears normal, nares patent, oropharynx clear without exudates. Moist mucous membranes. NECK: soft, supple, no JVD LUNGS: Breath sounds equal, clear to auscultation bilaterally. No wheezes, and no crackles. No accessory muscle use. HEART: S1S2 regular ABDOMEN: Soft, nontender, not distended, normoactive bowel sounds, no guarding, no rebound, no masses. MUSCULOSKELETAL: Normal range of motion at all joints. No bony deformities or tenderness. No CVA tenderness. UPPER EXTREMITIES: 2+ pulses, warm, well-perfused. No cyanosis. No clubbing. No peripheral edema. LOWER EXTREMITIES: RLE in cast, well perfused, no tenderness noted NEUROLOGICAL: Cranial nerves II-XII intact. Normal speech. Normal gait. PSYCHIATRIC: Cooperative. Good eye contact. Appropriate mood and affect. SKIN: Warm, dry, normal turgor, no rashes or lesions noted, normal capillary refill. Home Medication List Medication Instructions Recorded Confirmed Type Aspirin [ASA -] 81 mg PO DAILY 02/03/18 02/03/18 History Chlorthalidone 25 mg PO DAILY 02/03/18 02/03/18 History Gabapentin [Neurontin] 300 mg PO TID 02/03/18 02/03/18 History Liraglutide [Victoza -] 1.8 mg SQ DAILY@0700 02/03/18 02/03/18 History Lisinopril [Zestril] 30 mg PO DAILY 02/03/18 02/03/18 History Pravastatin Sodium 20 mg PO DAILY 02/03/18 02/03/18 History Sitagliptin Phosphate [Januvia] 100 mg PO DAILY 02/03/18 02/03/18 History Active Medications Generic Name Dose Route Start Last Admin Trade Name Freq PRN Reason Stop Dose Admin Aspirin 81 mg 02/03/18 10:30 02/03/18 11:11 Asa - PO 81 mg DAILY LEONARDO Administration Atorvastatin Calcium 10 mg 02/03/18 22:00 Lipitor - PO HS [facility] Chlorthalidone 25 mg 02/04/18 10:00 [place] - PO DAILY [facility] Gabapentin 300 mg 02/03/18 14:00 Neurontin - PO TID [facility] Liraglutide 1.8 mg 02/04/18 07:00 Victoza - SQ DAILY@0700 [facility] Lisinopril 30 mg 02/03/18 10:30 02/03/18 11:16 Prinivil PO 30 mg DAILY LEONARDO Administration Metformin HCl 850 mg 02/03/18 16:30 Glucophage - PO BIDAC [facility] Sitagliptin Phosphate 100 mg 02/03/18 10:30 02/03/18 11:14 Januvia - PO 100 mg AM LEONARDO Administration Laboratory Results - last 24 hr 02/03/18 02/03/18 01:01 01:01 WBC 9.6 D RBC 4.14 Hgb 12.0 Hct 34.4 MCV 83.1 MCH 28.9 MCHC 34.8 RDW 13.7 Plt Count 297 MPV 7.8 Neutrophils % 64.7 D Lymphocytes % 25.2 D Monocytes % 8.2 Eosinophils % 1.4 D Basophils % 0.5 Sodium 138 Potassium 3.8 Chloride 103 Carbon Dioxide 25 Anion Gap 10 BUN 18 Creatinine 0.9 Creat Clearance w eGFR > 60 Random Glucose 158 H Calcium 10.1 Total Bilirubin 0.2 AST 17 ALT 20 Alkaline Phosphatase 83 Creatine Kinase 85 Troponin I < 0.02 Total Protein 7.6 Albumin 3[address] A/P results reviewed. ASSESSMENT AND PLAN: 67 yof with abdominal pain/constipation, that resolved prior to intervention in the ED, non concerning CT A/P -Abdominal pain/constipation -DM -HTN -Asthma PLan: counseled on bowel regimen and high fiber diet. Also advised to avoid metformin for 48 hours given contrast administration. patient aware of the same and agreable to comply. COntinue home regimen D/c home today with outpatient PCP follow up. Plan discussed with patient and all questions answered. Total time spent 40 min.
--- NOTE | 2018-02-03 12:59 | EKG ---
Test Reason : Blood Pressure : / mmHG Vent. Rate : 111 BPM Atrial Rate : 111 BPM P-R Int : 212 ms QRS Dur : 082 ms QT Int : 306 ms P-R-T Axes : 050 -06 075 degrees QTc Int : 416 ms SINUS TACHYCARDIA WITH 1ST DEGREE A-V BLOCK OTHERWISE NORMAL ECG WHEN COMPARED WITH ECG OF 28-OCT-2016 17:32, VENT. RATE HAS INCREASED BY 38 BPM NONSPECIFIC T WAVE ABNORMALITY NO LONGER EVIDENT IN INFERIOR LEADS NONSPECIFIC T WAVE ABNORMALITY, IMPROVED IN ANTEROLATERAL LEADS Confirmed by KATHE LARKIN MD ([id number]) on 02/03/2018 12:58:46 PM Referred By: Confirmed By:KATHE LARKIN MD
[2018-02-03] MEDS ORDERED: GABAPENTIN 300 MG CAPSULE (FP) PO SCH (14:00)
[2018-02-03] MEDS ORDERED: ATORVASTATIN CA 10 MG TABLET (FP) PO SCH (22:00)
[2018-02-04] MEDS ORDERED: LIRAGLUTIDE 0.6 MG/0.1 ML PEN.INJCTR SQ SCH (07:00)
[2018-02-04] MEDS ORDERED: CHLORTHALIDONE 25 MG TABLET PO SCH (10:00)
== END 2018-02-03 12:09 | disposition home or self-care (01) ==
LOC: JER 00:20 → JERBED 04:58 → UNDOADMOB 05:47
PROVIDERS: ADMIT Internal Medicine; ATTEND Internal Medicine
PROC: 3E033NZ Introduction of Analgesics, Hypnotics, Sedatives into Peripheral Vein, Percutaneous Approach (ICD-10-PCS; principal; 2018-02-03)
PROC: 3E033GC Introduction of Other Therapeutic Substance into Peripheral Vein, Percutaneous Approach (ICD-10-PCS; 2018-02-03)
PROC: 3E0337Z Introduction of Electrolytic and Water Balance Substance into Peripheral Vein, Percutaneous Approach (ICD-10-PCS; 2018-02-03)
DX: K59.04 Chronic idiopathic constipation (principal); R10.9 Unspecified abdominal pain; I10 Essential (primary) hypertension; E78.5 Hyperlipidemia, unspecified; E11.9 Type 2 diabetes mellitus without complications; J45.909 Unspecified asthma, uncomplicated; Z79.82 Long term (current) use of aspirin
CPT/HCPCS: 36415; 74019-TC-FY; 74177-TC; 80053; 82550; 83690; 84484; 85025; 93005; 93010; 96361; 96374; 96375; 99282-25; G0378; J7030

== ENCOUNTER 2018-07-10 14:06 | Emergency (ER) | payer OTHER ==
[2018-07-10 14:16] VITALS: TEMP 98.6; BMI 32.9
--- NOTE | 2018-07-10 14:40 | PDOC ---
History of Present Illness - General Chief Complaint: Pain Stated Complaint: PAIN Time Seen by Provider: 07/10/18 14:40 - History of Present Illness Initial Comments: 68 year old female with PMH of HTN, HLD, DM, and chronic constipation who presents for evaluation of rectal pain and right arm pain for the past week. Patient states that her rectal pain was mild until the last few days when she was straining over the toilet. She believes that she has hemorrhoids. Her upper extremity pains have been bothersome for years but recently worsened in the setting of her poor blood glucose control that often goes as high as the 400s. States that she has taken ibuprofen without much relief and stopped taking gabapentin because it made her feel dizzy. The pains were particularly bad yesterday evening when her granddaughter noted she was crying. Denies any fevers , chills, nausea, vomiting, chest pain, SOB, abdominal pains or other symptoms. 07/10/18 15:19 Past History - Past Medical History Allergies/Adverse Reactions: Allergies Allergy/AdvReac Type Severity Reaction Status Date / Time No Known Allergies Allergy Verified 07/10/18 14:15 Home Medications: Ambulatory Orders Aspirin [ASA -] 81 mg PO DAILY 02/03/18 Docusate Sodium [Colace] 100 mg PO BID #60 capsule 02/03/18 Liraglutide [Victoza -] 1.8 mg SQ DAILY@0700 02/03/18 Lisinopril [Zestril] 30 mg PO DAILY 02/03/18 Sennosides [Senna] 8.6 mg PO HS #30 tablet 02/03/18 Sitagliptin Phosphate [Januvia] 100 mg PO DAILY 02/03/18 Metformin HCl [Glucophage] 1,000 mg PO BID 07/10/18 Phenyleph/Pramoxin/Glycr/W.pet [Preparation H Cream] 51 gm RC DAILY #1 tube Asthma: Yes COPD: No Diabetes: Yes HTN: Yes Hypercholesterolemia: Yes Other medical history: arthritis with chronic pain - Immunization History Immunization Up to Date: Yes - Suicide/Smoking/Psychosocial Hx Smoking History: Never smoked Have you smoked in the past 12 months: No Hx Alcohol Use: No Drug/Substance Use Hx: No Substance Use Type: None Review of Systems - Review of Systems Constitutional: No: Chills, Diaphoresis, Fever, Loss of Appetite HEENTM: No: Tearing, Double Vision Respiratory: No: Cough, Orthopnea, Shortness of Breath Cardiac (ROS): No: Chest Pain, Irregular Heart Rate, Lightheadedness, Syncope ABD/GI: Yes: Constipated. No: Diarrhea, Nausea, Vomiting : No: Burning, Dysuria, Discharge Musculoskeletal: Yes: Joint Pain, Muscle Pain, Joint Stiffness. No: Back Pain, Muscle Weakness, Neck Pain Integumentary: No: Bruising, Change in Color, Erythema Neurological: Yes: Paresthesia, Tingling. No: Headache, Numbness, Weakness, Ataxia, Dizziness Psychiatric: No: Anxiety, Depression Endocrine: No: Excessive Sweating, Flushing, Intolerance to Cold, Intolerance to Heat Hematologic/Lymphatic: No: Anemia, Blood Clots, Easy Bleeding *Physical Exam - Vital Signs Last Vital Signs Temp Pulse Resp BP Pulse Ox 98.6 F 68 18 162/65 98 07/10/18 14:07/10/18 14:07/10/18 14:07/10/18 14:07/10/18 14:09 - Physical Exam General Appearance: Yes: Nourished, Appropriately Dressed. No: Apparent Distress HEENT: positive: EOMI, GLENROY, Normal ENT Inspection, Normal Voice Neck: positive: Trachea midline, Normal Thyroid, Supple. negative: Tender, Rigid Respiratory/Chest: positive: Lungs Clear, Normal Breath Sounds. negative: Chest Tender, Respiratory Distress, Accessory Muscle Use Cardiovascular: positive: Regular Rhythm, Regular Rate Gastrointestinal/Abdominal: positive: Normal Bowel Sounds, Flat, Soft. negative : Tender Rectal Exam: positive: normal rectal tone, hemorrhoids, other (large hemorrhoid at 6 o'clock and ). negative: normal exam Musculoskeletal: positive: Normal Inspection. negative: CVA Tenderness Extremity: positive: Normal Capillary Refill, Normal Range of Motion, Tender ( tender arms bilaterally to her shoulders), Other (loss of sensation in her feet and hands bilaterally). negative: Normal Inspection Integumentary: positive: Normal Color, Dry, Warm Neurologic: positive: director of laboratory operations II-XII NML intact, Fully Oriented, Alert, Normal Mood/ Affect, Normal Response, Motor Strength 5/5 ED Treatment Course - LABORATORY CBC & Chemistry Diagram: 07/10/18 16:00 07/10/18 16:00 Medical Decision Making - Medical Decision Making 68year old female with complaints of rectal pain, bilateral arm and bilateral leg pain in the setting of gabapentin cessation. Patient's pain improved with Tylenol 975, toradol 15 IV, and IV NS. She failed gabapentin therapy as an outpatient due to side effects so she should be tried on second line (SSRIs etc) . Urine and labs negative. Prescribed sitz baths, preparation H, and stool softeners for her hemorrhoids/ fissure. Will DC patient with follow up with her PCP and return precautions. 07/10/18 17:24 *DC/Admit/Observation/Transfer Diagnosis at time of Disposition: Neuropathic pain Hemorrhoid Qualifiers: Hemorrhoid type: first degree Qualified Code(s): K64.0 - First degree hemorrhoids - Discharge Dispostion Disposition: HOME Condition at time of disposition: Improved Decision to Admit order: No - Prescriptions Prescriptions: Phenyleph/Pramoxin/Glycr/W.pet [Preparation H Cream] 51 gm RC DAILY #1 tube - Referrals Referrals: Mckayla Mason [Primary Care Provider] - - Patient Instructions Printed Discharge Instructions: DI for Diabetic Neuropathy, DI for Hemorrhoids Additional Instructions: Please use the cream in your rectum to help your hemorrhoids. Please follow up with your doctor to get better control of your diabetic neuropathy. Please return to the ED if you have new or worsening symptoms. - Post Discharge Activity
[2018-07-10] MEDS ORDERED: ACETAMINOPHEN 500 MG TABLET (FP) PO ONE (15:25)
[2018-07-10] MEDS ORDERED: ACETAMINOPHEN 325 MG TABLET (FP) ONE (15:26)
[2018-07-10] MEDS ORDERED: KETOROLAC TROMETHAMINE 15 MG/ML VIAL IVPUSH ONE (16:07)
[2018-07-10] MEDS ORDERED: SODIUM CHLORIDE 0.9% 500 ML INFUS.BAG IV ONE (16:08)
[2018-07-10] MEDS ORDERED: KETOROLAC TROMETHAMINE 15 MG/ML VIAL ONE (16:09)
--- NOTE | 2018-07-10 16:15 | PDOC ---
Attending Attestation - Resident Resident Name: Pablo Pearson - ED Attending Attestation I have performed the following: I have examined & evaluated the patient, The case was reviewed & discussed with the resident, I agree w/resident's findings & plan, Exceptions are as noted - HPI HPI: 07/10/18 16:12 68-year-old female with poorly controlled diabetes presents with 2 complaints. The patient reports a several weeks of having burning like sensation and discomfort on the upper or lower extremities. Patient reports when she touches the skin or turns onto her body parts, she feels a severe burning sensation distally to proximally. Occurs worse on the right arm but occurs in the lower extremities and left arm. Denies chest pain or shortness of breath. Patient states she was prior on gabapentin but because of the side effects of the medications, the patient at the stop. Patient reports that she's poorly controlled diabetic and occasionally her sugars go up to 400. In addition, she reports that her diabetes makes her severely constipated. She normally takes MiraLAX at home but is unable to help with her symptoms. She noticed that she's been straining her bowels and noticed she had rectal pain. Denies rectal bleeding. Denies diarrhea, nausea or vomiting. Denies fevers. She came in because of the 2 complaints. - Physicial Exam PE: 07/10/18 16:12 GENERAL: Awake, alert, and fully oriented, in no acute distress HEAD: No signs of trauma EYES: EOMI, sclera anicteric, conjunctiva clear ENT: Auricles normal inspection, hearing grossly normal, nares patent, Moist mucosa NECK: Normal ROM, supple, LUNGS: Breath sounds equal, clear to auscultation bilaterally. No wheezes, and no crackles HEART: Regular rate and rhythm, normal S1 and S2, no murmurs, rubs or gallops ABDOMEN: Soft, nontender, No guarding, no rebound. No masses EXTREMITIES: Normal range of motion, no edema. No clubbing or cyanosis. No cords, erythema, or tenderness NEUROLOGICAL: Cranial nerves II through XII intact. Normal speech, normal gait. Burning sensation on palpation on lower extremities and upper extremities. No bony tenderness. Exam: As per resident SKIN: Warm, Dry, normal turgor, no rashes or lesions noted. - Medical Decision Making 07/10/18 16:12 Vital Signs Temp Pulse Resp BP Pulse Ox 98.6 F 68 18 162/65 98 07/10/18 14:09 07/10/18 14:09 07/10/18 14:09 07/10/18 14:09 07/10/18 14:09 I suspect the patient's symptoms are secondary to her diabetes. She likely has peripheral neuropathy. Given that she has partly strong side effects to gabapentin, we'll defer on medications at this time. We'll instruct that she will require better control of her sugars and will have her follow-up with her doctors. However, patient's family reports that the patient typical benefits with some IV fluids and assistance with her constipation. Patient already has stool softeners at home and they're requesting IV fluids. We will check some blood work and a urinalysis. We will give her some IV fluids and toradol and Tylenol. If her symptoms are better and the workup is unremarkable, the patient feels comfortable going home for outpatient management of the symptoms. Her rectal exam is significant for hemorrhoids. We'll treat with preparation H and stool softeners and sitz bath. 07/10/18 17:15 CBC, BMP 07/10/18 16:00 07/10/18 16:00 CMP Sodium 140 mmol/L (136-145) 07/10/18 16:00 Potassium 4.5 mmol/L (3.5-5.1) 07/10/18 16:00 Chloride 105 mmol/L (98-107) 07/10/18 16:00 Carbon Dioxide 30 mmol/L (21-32) 07/10/18 16:00 Anion Gap 5 MMOL/L (8-16) L 07/10/18 16:00 BUN 15 mg/dL (7-18) 07/10/18 16:00 Creatinine 0.7 mg/dL (0.55-1.3) 07/10/18 16:00 Creat Clearance w eGFR > 60 (>60) 07/10/18 16:00 Random Glucose 106 mg/dL (74-106) 07/10/18 16:00 Calcium 9.6 mg/dL (8.5-10.1) 07/10/18 16:00 Total Bilirubin 0.2 mg/dL (0.2-1) 07/10/18 16:00 AST 21 U/L (15-37) 07/10/18 16:00 ALT 32 U/L (13-61) 07/10/18 16:00 Alkaline Phosphatase 111 U/L (45-117) 07/10/18 16:00 Total Protein 7.4 g/dl (6.4-8.2) 07/10/18 16:00 Albumin 3.7 g/dl (3.4-5.0) 07/10/18 16:00 Urine Test Results Urine Color Straw 07/10/18 16:00 Urine Appearance Clear 07/10/18 16:00 Urine pH 7.0 (5.0-8.0) D 07/10/18 16:00 Ur Specific [place] 1.008 (1.001-1.035) 07/10/18 16:00 Urine Protein Negative (NEGATIVE) 07/10/18 16:00 Urine Glucose (UA) Negative (NEGATIVE) 07/10/18 16:00 Urine Ketones Negative (NEGATIVE) 07/10/18 16:00 Urine Blood Negative (NEGATIVE) 07/10/18 16:00 Urine Nitrite Negative (NEGATIVE) 07/10/18 16:00 Urine Bilirubin Negative (<2.0 mg/dL) 07/10/18 16:00 Ur Leukocyte Esterase Negative (NEGATIVE) 07/10/18 16:00
[2018-07-10 16:30] LABS: BASO % 0.5 % (0-2.0); EOS % 1.5 % (0-4.5); HEMATOCRIT 38.9 % (32.4-45.2); HEMOGLOBIN 12.7 GM/dL (10.7-15.3); LYMPH % 25.9 % (8-40); MCH 27.2 pg (25.7-33.7); MCHC 32.6 g/dl (32.0-36.0); MEAN CELL VOLUME 83.3 fl (80-96); MEAN PLT VOLUME 8.3 fl (7.5-11.1); MONO % 7.9 % (3.8-10.2); NEUT % 64.2 % (42.8-82.8); PLATELET COUNT 310 K/MM3 (134-434); RBC 4.67 M/mm3 (3.60-5.2); RDW 14.6 % (11.6-15.6); WHITE BLOOD COUNT 7.8 K/mm3 (4.0-10.0)
[2018-07-10 16:40] LABS: URINE APPEARANCE CLEAR; URINE BILIRUBIN NEGATIVE (<2.0 mg/dL); URINE COLOR STRAW; URINE GLUCOSE (UA) NEGATIVE (NEGATIVE); URINE KETONE NEGATIVE (NEGATIVE); URINE LEUK ESTERASE NEGATIVE (NEGATIVE); URINE NITRITE NEGATIVE (NEGATIVE); URINE PROTEIN NEGATIVE (NEGATIVE); URINE UROBILINOGEN NEGATIVE mg/dL (0.2-1.0)
[2018-07-10 16:57] LABS: ALBUMIN 3.7 g/dl (3.4-5.0); ALK PHOS 111 U/L (45-117); ANION GAP 5 MMOL/L (8-16); BILIRUBIN,TOTAL 0.2 mg/dL (0.2-1); BLOOD UREA NITROGEN 15 mg/dL (7-18); CALCIUM 9.6 mg/dL (8.5-10.1); CHLORIDE 105 mmol/L (98-107); CO2 30 mmol/L (21-32); CREATININE 0.7 mg/dL (0.55-1.3); GLUCOSE,RANDOM 106 mg/dL (74-106); POTASSIUM 4.5 mmol/L (3.5-5.1); SGOT/AST 21 U/L (15-37); SGPT/ALT 32 U/L (13-61); SODIUM 140 mmol/L (136-145); TOT PROT 7.4 g/dl (6.4-8.2)
[2018-07-10 17:55] VITALS: BP 164/64; PULSE 59
== END 2018-07-10 17:54 | disposition home or self-care (01) ==
LOC: JER 14:06
PROC: 3E0333Z Introduction of Anti-inflammatory into Peripheral Vein, Percutaneous Approach (ICD-10-PCS; principal; 2018-07-10)
DX: K64.0 First degree hemorrhoids (principal); M79.2 Neuralgia and neuritis, unspecified; I10 Essential (primary) hypertension; E78.00 Pure hypercholesterolemia, unspecified; J45.909 Unspecified asthma, uncomplicated; E11.65 Type 2 diabetes mellitus with hyperglycemia; Z79.84 Long term (current) use of oral hypoglycemic drugs
CPT/HCPCS: 36415; 80053; 81003; 85025; 87086; 96374; 99282-25

== ENCOUNTER 2022-11-11 20:03 | Observation (INO) | payer OTHER ==
[2022-11-11 20:11] VITALS: BMI 29.2
[2022-11-11] MEDS ORDERED: DEXAMETHASONE SOD PHOSPHATE 10 MG/1 ML VIAL ONE (20:30)
[2022-11-11] MEDS ORDERED: DEXAMETHASONE SOD PHOSPHATE 10 MG/1 ML VIAL IVPUSH ONE (20:31)
[2022-11-11] MEDS ORDERED: LACTATED RINGERS SOLUTION 1000 ML INFUS.BAG IV ONE (20:31)
[2022-11-11] MEDS ORDERED: FAMOTIDINE 20 MG/50 ML IVPB 20 MG/50 ML MG IVPB ONE ×2 (20:31)
[2022-11-11 21:16] LABS: BASO % 0.2 % (0-2.0); EOS % 0.8 % (0-4.5); HEMATOCRIT 31.8 % (32.4-45.2); HEMOGLOBIN 10.6 GM/dL (10.7-15.3); LYMPH % 20.8 % (8-40); MCHC 33.5 g/dl (32.0-36.0); MEAN CELL VOLUME 83.8 fl (80-96); MEAN PLT VOLUME 7.9 fl (7.5-11.1); NEUT % 71.2 % (42.8-82.8); PLATELET COUNT 305 10^3/uL (134-434); RBC 3.79 M/mm3 (3.60-5.2); RDW 14.4 % (11.6-15.6); WHITE BLOOD COUNT 11.4 K/mm3 (4.0-10.0)
[2022-11-11 21:26] LABS: INR 1.13 (0.83-1.09)
[2022-11-11 21:29] LABS: ACTIVATED PTT 31.1 SECONDS (25.2-36.5)
[2022-11-11 21:35] LABS: CALCIUM 9.5 mg/dL (8.5-10.1)
[2022-11-11 21:36] LABS: ALBUMIN 3.6 g/dl (3.4-5.0); BLOOD UREA NITROGEN 28.3 mg/dL (7-18); MAGNESIUM 1.7 mg/dL (1.8-2.4)
[2022-11-11 21:40] LABS: BILIRUBIN,TOTAL 0.2 mg/dL (0.2-1); TOT PROT 6.9 g/dl (6.4-8.2)
[2022-11-11] MEDS ORDERED: MAGNESIUM SULF 50% (8.12 MEQ/2 ML-1 GM VIAL) IVPB ONE (22:04)
[2022-11-11] MEDS ORDERED: MAGNESIUM 1GM/D5W - 1 GM/100 ML IVPB IVPB ONE (22:18)
[2022-11-12] MEDS ORDERED: MAGNESIUM 2GM/50ML STERILE WATER IVPB IVPB ONE (06:00)
[2022-11-12] MEDS ORDERED: MAGNESIUM SULFATE IN WATER 2 GM/50 ML IVPB IVPB ONE (06:39)
[2022-11-12 06:46] LABS: BASO % 0.1 % (0-2.0); HEMATOCRIT 34.6 % (32.4-45.2); HEMOGLOBIN 11.7 GM/dL (10.7-15.3); LYMPH % 12.2 % (8-40); MCH 28.2 pg (25.7-33.7); MCHC 33.9 g/dl (32.0-36.0); MEAN CELL VOLUME 83.4 fl (80-96); MEAN PLT VOLUME 7.9 fl (7.5-11.1); MONO % 1.1 % (3.8-10.2); NEUT % 86.6 % (42.8-82.8); PLATELET COUNT 322 10^3/uL (134-434); RBC 4.15 M/mm3 (3.60-5.2); RDW 14.4 % (11.6-15.6); WHITE BLOOD COUNT 9.5 K/mm3 (4.0-10.0)
[2022-11-12 07:07] LABS: ALBUMIN 3.6 g/dl (3.4-5.0); CALCIUM 9.8 mg/dL (8.5-10.1)
[2022-11-12 07:08] LABS: BLOOD UREA NITROGEN 21.6 mg/dL (7-18); MAGNESIUM 1.9 mg/dL (1.8-2.4)
[2022-11-12 07:11] LABS: CREATININE 0.9 mg/dL (0.55-1.3); PHOSPHOROUS 3.5 mg/dL (2.5-4.9)
[2022-11-12 07:12] LABS: BILIRUBIN,TOTAL 0.4 mg/dL (0.2-1); TOT PROT 7.2 g/dl (6.4-8.2)
[2022-11-12] MEDS: INSULIN SLIDING SCALE (NOVOLOG) 1 VIAL SQ SCH ×4 (07:20→22:35)
[2022-11-12] MEDS ORDERED: SODIUM CHLORIDE 1,000 ML IV STA (07:49)
[2022-11-12] MEDS ORDERED: SODIUM ZIRCONIUM CYCLOSILICATE (LOKELMA) 5 GM PACKET PO ONE (07:49)
[2022-11-12] MEDS ORDERED: INSULIN REGULAR HUMAN 100 UNITS/ML *VIAL IVPUSH ONE (08:30)
[2022-11-12] MEDS ORDERED: SODIUM ZIRCONIUM CYCLOSILICATE (LOKELMA) 5 GM PACKET ONE (08:57)
[2022-11-12] MEDS: ENOXAPARIN NA (PORCINE) 40 MG/0.4 ML DISP.SYRIN SQ SCH (09:15)
[2022-11-12] MEDS ORDERED: predniSONE 20 MG TABLET (UD) PO ONE (14:46)
[2022-11-12] MEDS ORDERED: diphenhydrAMINE HCL 25 MG CAPSULE (FP) PO ONE ×2 (15:03→22:21)
[2022-11-12] MEDS: diphenhydrAMINE HCL 25 MG CAPSULE (FP) PO SCH ×2 (15:07→22:27)
[2022-11-12] MEDS ORDERED: ATORVASTATIN CA 20 MG TABLET (FP) ONE (21:41)
[2022-11-12] MEDS ORDERED: GABAPENTIN 300 MG CAPSULE ONE (21:42)
[2022-11-12] MEDS ORDERED: ATORVASTATIN CA 20 MG TABLET (FP) PO SCH (22:00)
[2022-11-12] MEDS: GABAPENTIN 300 MG CAPSULE PO SCH (22:02)
[2022-11-13] MEDS: GABAPENTIN 300 MG CAPSULE PO SCH ×2 (05:20→14:02)
[2022-11-13 05:47] VITALS: RESP 18
[2022-11-13] MEDS: INSULIN SLIDING SCALE (NOVOLOG) 1 VIAL SQ SCH ×3 (06:10→17:27)
[2022-11-13] MEDS: diphenhydrAMINE HCL 25 MG CAPSULE (FP) PO SCH ×2 (06:10→15:45)
[2022-11-13] MEDS: ENOXAPARIN NA (PORCINE) 40 MG/0.4 ML DISP.SYRIN SQ SCH (09:39)
[2022-11-13] MEDS ORDERED: DULoxetine HCL 30 MG CAPSULE.DR PO SCH (10:00)
[2022-11-13] MEDS ORDERED: amLODIPine BESYLATE 5 MG TABLET (FP) PO SCH (10:00)
[2022-11-13] MEDS ORDERED: POLYETHYLENE GLYCOL (HEALTHYLAX) 3350 17 GM PACKET PO SCH (10:00)
[2022-11-13 11:24] LABS: HEMATOCRIT 32.9 % (32.4-45.2); MCH 28.3 pg (25.7-33.7); MCHC 33.4 g/dl (32.0-36.0); MEAN CELL VOLUME 84.8 fl (80-96); MEAN PLT VOLUME 7.9 fl (7.5-11.1); PLATELET COUNT 323 10^3/uL (134-434); RBC 3.88 M/mm3 (3.60-5.2); RDW 14.3 % (11.6-15.6); WHITE BLOOD COUNT 10.2 K/mm3 (4.0-10.0)
[2022-11-13 11:47] LABS: CALCIUM 9.9 mg/dL (8.5-10.1)
[2022-11-13 11:51] LABS: CREATININE 0.9 mg/dL (0.55-1.3)
[2022-11-13 18:31] VITALS: BP 137/59; PULSE 64; TEMP 98
== END 2022-11-13 18:39 | disposition home or self-care (01) ==
LOC: JER 20:03 → JERBED 22:07 → J5S 11-12 23:35
PROVIDERS: ADMIT Internal Medicine; ATTEND Internal Medicine
PROC: 3E033GC Introduction of Other Therapeutic Substance into Peripheral Vein, Percutaneous Approach (ICD-10-PCS; principal; 2022-11-11)
PROC: 3E023GC Introduction of Other Therapeutic Substance into Muscle, Percutaneous Approach (ICD-10-PCS; 2022-11-11)
PROC: 3E033GC Introduction of Other Therapeutic Substance into Peripheral Vein, Percutaneous Approach (ICD-10-PCS; 2022-11-11)
PROC: 3E033VG Introduction of Insulin into Peripheral Vein, Percutaneous Approach (ICD-10-PCS; 2022-11-11)
PROC: 3E0337Z Introduction of Electrolytic and Water Balance Substance into Peripheral Vein, Percutaneous Approach (ICD-10-PCS; 2022-11-11)
DX: T78.3XXA Angioneurotic edema, initial encounter (principal); R79.89 Other specified abnormal findings of blood chemistry; I10 Essential (primary) hypertension; E11.65 Type 2 diabetes mellitus with hyperglycemia; Z29.8 Encounter for other specified prophylactic measures; X58.XXXA Exposure to other specified factors, initial encounter; R49.1 Aphonia
CPT/HCPCS: 0241U-QW; 36415; 71045-TC-FY; 80048; 80053; 82728; 82962; 83036; 83540; 83550; 83735; 84100; 84466; 84484; 85025; 85027; 85045; 85610; 85730; 86850; 86900; 86901; 93005; 93010; 96361; 96365; 96372; 96375; 96376; 99285-25; G0378; J1100